=== PATIENT | male | born 1950 | race Caucasian/White ===

== ENCOUNTER 2017-11-05 20:51 | Emergency (ER) | payer MEDICARE, MEDICAID ==
[~2017-11-05] VITALS: Ht 165.1 cm; Wt 59.9 kg
--- NOTE | 2017-11-05 21:55 | NUR ---
Patient discharged to home in stable conditon. Written and verbal after care instructions given. Patient verbalizes understanding of instructions. Ambulated from ER with stable gait. All belongings with patient.
[2017-11-05 21:56] VITALS: BP 124/74
== END 2017-11-05 21:57 | disposition home or self-care (01) ==
LOC: ER 20:53
DX: J18.9 Pneumonia, unspecified organism (principal)
CPT/HCPCS: 71046